=== PATIENT | male | born 1995 | race African-American/Black ===

== ENCOUNTER 2025-06-13 19:28 | Emergency (ER) | payer MEDICAID ==
[~2025-06-13] VITALS: Ht 182.9 cm; Wt 81.6 kg
[2025-06-13 21:13] LABS: APPEARANCE,URINE CLEAR (CLEAR); BLOOD, URINE TRACE-INTA Ery/uL (NEGATIVE); LEUKOCYTE ESTERASE ,URINE NEGATIVE (NEGATIVE); NITRITE, URINE POSITIVE (NEGATIVE); UGLUCOSE NEGATIVE (NEGATIVE)
[2025-06-13] MEDS ORDERED: KETOROLAC TROMETHAMINE 15 MG/ML VIAL ONE (21:13)
[2025-06-13 21:20] LABS: SQUAMOUS EPITHELIAL CELL,UR None Seen /HPF (None Seen)
[2025-06-13] MEDS: KETOROLAC TROMETHAMINE 15 MG/ML VIAL IM ONE (21:20)
[2025-06-13 21:21] LABS: ADD URINE CULTURE YES
[2025-06-13] MEDS ORDERED: MECO10005 PO (21:21)
[2025-06-13] MEDS ORDERED: IBUP-1953 PO (21:21)
[2025-06-13] MEDS ORDERED: LIDO30AD10 TP (21:21)
[2025-06-13] MEDS ORDERED: METH-647 PO (21:21)
[2025-06-13 21:53] VITALS: BP 130/70; TEMP 98; O2SAT 98
== END 2025-06-13 21:55 | disposition home or self-care (01) ==
LOC: ER 19:30
DX: M54.32 Sciatica, left side (principal); Z92.3 Personal history of irradiation; Z79.899 Other long term (current) drug therapy
CPT/HCPCS: 99283; 96372; 87086; 81001; 82962; J1885